=== PATIENT | female | born 1990 | race Caucasian/White ===

== ENCOUNTER 2018-08-05 13:40 | Emergency (ER) | payer OTHER ==
--- NOTE | 2018-08-05 14:25 | ED ---
Head Injury - HPI Summary HPI Summary: This pt is a 28 y/o female presenting to [facility] c/o speaking slow and intermittent headache x2 days s/p head injury. Pt reports that 3 days ago she tripped on a curb subsequently falling and hitting the front of her head against a cross walk button. She states she went to [facility] and was diagnosed with a concussion. Denies LOC. Pt notes she thought she was getting better until she started speaking slow 2 days ago. She reports speaking slower today than yesterday as well having as intermittent headache. Pt also notes bruise on her knee from the fall. Denies neck pain, pelvic pain, chest pain, SOB , nausea, vomiting. Denies any PMHx. She does not take any medications. Denies tobacco, drug, and alcohol use. - History Of Current Complaint Chief Complaint: EDHeadInjury Stated Complaint: DIFF SPEAKING Time Seen by Provider: 08/05/18 14:03 Hx Obtained From: Patient Mechanism Of Injury: Direct Blow Onset/Duration: Started Days Ago - 2, Traumatic, Still Present Onset of Pain: Days Severity Initially: Moderate Pain Intensity: 4 Pain Scale Used: 0-10 Numeric Location of Head Injury: Frontal Location: Diffuse Aggravating Factor(s): Other: - nothing Alleviating Factor(s): Other: - nothing Associated Signs And Symptoms: Headache, Other: - POSITIVE: speaking slow, bruise on knee. NEGATIVE: nausea, vomiting, LOC, neck pain, pelvic pain, chest pain, SOB - Allergies/Home Medications Allergies/Adverse Reactions: Allergies Allergy/AdvReac Type Severity Reaction Status Date / Time No Known Allergies Allergy Verified 08/05/18 14:28 Home Medications: Home Medications NK [No Home Medications Reported] 08/05/18 [History Confirmed 08/05/18] PMH/Surg Hx/FS Hx/Imm Hx Endocrine/Hematology History: Denies: Hx Diabetes Cardiovascular History: Denies: Hx Hypertension Infectious Disease History: No Infectious Disease History: Denies: Traveled Outside the [place] in Last 30 Days - Family History Known Family History: Negative: Cardiac Disease, Diabetes - Social History Alcohol Use: None Substance Use Type: Reports: None Smoking Status (MU): Never Smoked Tobacco Review of Systems Negative: Fever, Chills Negative: Chest Pain Negative: Shortness Of Breath Negative: Vomiting, Nausea Negative: other - pelvic pain Negative: Other - neck pain Positive: Bruising - on knee Neurological: Other - POS: speaking slower Positive: Headache All Other Systems Reviewed And Are Negative: Yes Physical Exam - Summary Physical Exam Summary: Appearance: Well appearing, no pain distress Skin: warm, dry, reflects adequate perfusion Head/face: normal Eyes: EOMI, GLENN ENT: normal Neck: supple, nontender Respiratory: CTA, breath sounds present Cardiovascular: RRR, pulses symmetrical Abdomen: nontender, soft Bowel: present Musculoskeletal: normal, strength/ROM intact Neuro: normal, sensory motor intact, A&Ox3 Triage Information Reviewed: Yes Vital Signs On Initial Exam: Initial Vitals Temp Pulse Resp BP Pulse Ox 98.3 F 68 14 139/89 100 08/05/18 13:59 08/05/18 13:59 08/05/18 13:59 08/05/18 13:59 08/05/18 13:59 Vital Signs Reviewed: Yes - Mando Coma Scale Best Eye Response: 4 - Spontaneous Best Motor Response: 6 - Obeys Commands Best Verbal Response: 5 - Oriented Coma Scale Total: 15 Diagnostics - Vital Signs Vital Signs Temp Pulse Resp BP Pulse Ox 08/05/18 13:59 98.3 F 68 14 139/89 100 - Laboratory Lab Statement: Any lab studies that have been ordered have been reviewed, and results considered in the medical decision making process. - CT Brain CT CT Interpretation Completed By: Radiologist Summary of CT Findings: IMPRESSION: No evidence for acute intracranial abnormality. Dr. Avila has reviewed this report. Head Injury Course/Dx Assessment/Plan: Pt is a 28 y/o female who presents with speaking slow and intermittent headache x2 days s/p head injury. Pt reports that 3 days ago she tripped on a curb subsequently falling and hitting the front of her head against a cross walk button. She states she went to [facility] and was diagnosed with a concussion. Denies LOC. Denies any other injuries. Head CT shows no evidence for acute intracranial abnormality. Pt has no neurological deficits. Therefore she will be discharged home with follow up from her PCP in 3 days. She is instructed to return to the ED for any worsening or new symptoms. - Diagnoses Differential Diagnosis/HQI/PQRI: Concussion Without LOC, Contusion, Intracranial Bleed Provider Diagnoses: Concussion Discharge - Sign-Out/Discharge Documenting (check all that apply): Patient Departure - Discharge home - Discharge Plan Condition: Stable Disposition: HOME Patient Education Materials: Concussion (ED) Referrals: [facility] [Outside] Additional Instructions: Please follow up with your primary care provider in 3 days. RETURN TO THE ED FOR ANY WORSENING SYMPTOMS. - Billing Disposition and Condition Condition: STABLE Disposition: Home - Attestation Statements Document Initiated by Scribe: Yes Documenting Scribe: Giselle Bennett Provider For Whom Scribe is Documenting (Include Credential): Israel Avila MD Scribe Attestation: Giselle Mathew, scribed for Israel Avila MD on 08/05/18 at 1547. Scribe Documentation Reviewed: Yes Provider Attestation: The documentation as recorded by the Giselle duran accurately reflects the service I personally performed and the decisions made by , Israel Avila MD
--- NOTE | 2018-08-05 15:03 | RAD ---
INDICATION: Head injury. COMPARISON: There are no relevant prior studies available for comparison. TECHNIQUE: Contiguous axial sections of the brain were obtained from the skull base to the vertex without contrast. FINDINGS: The ventricles, cisterns and sulci are within normal limits. No significant focal abnormality or mass effect is seen. There is no evidence for hemorrhage. No significant focal osseous abnormality is seen. The visualized portion of the paranasal sinuses and mastoid air cells appear clear. IMPRESSION: NO EVIDENCE FOR ACUTE INTRACRANIAL ABNORMALITY.
[2018-08-05 15:51] VITALS: BP 113/65
== END 2018-08-05 15:50 | disposition home or self-care (01) ==
LOC: ED 13:40
DX: S06.0X0A Concussion without loss of consciousness, initial encounter (principal); S80.00XA Contusion of unspecified knee, initial encounter; W01.198A Fall on same level from slipping, tripping and stumbling with subsequent striking against other object, initial encounter; Y93.01 Activity, walking, marching and hiking; Y92.480 Sidewalk as the place of occurrence of the external cause
CPT/HCPCS: 70450; 99282